=== PATIENT | female | born 1970 | race Caucasian/White ===

== ENCOUNTER 2017-04-25 11:51 | Emergency (ER) | payer MEDICAID ==
[~2017-04-25] VITALS: Ht 160 cm; Wt 80.0 kg
[~2017-04-25 11:51] MED LIST: ACET500C5 PO; DOCU-160 PO; LORA1TAB PO; TRAM-40 PO
[2017-04-25 11:55] VITALS: Ht 160 cm; Wt 80.0 kg
--- NOTE | 2017-04-25 12:38 | ERA ---
ER Documentation Chief Complaint Date/Time DATE: 04/25/17 TIME: 12:36 Chief Complaint RIGHT ARM PAIN HPI 46-year-old female with a chief complaint of right elbow pain. Pain started 1 day ago. Patient was carrying a box of bottles when she felt sudden pain in her right elbow. Denies trauma, fever, numbness, tingling, or other rapidly progressive neurological deficits, previous symptoms, or taking medications to relieve current symptoms. Patient has no other complaints and describes no other associated manifestations. ROS All systems reviewed and are negative except as per history of present illness. Medications Home Meds Active Scripts Ibuprofen* (Motrin*) 400 Mg Tab, 400 MG PO Q6, #30 TAB Prov:MOHIT DALAL PA-C 04/25/17 Lorazepam* (Lorazepam*) 1 Mg Tablet, 1 MG PO Q8H Y for ANXIETY, #20 TAB Prov:JODY HUNT 07/13/16 Lorazepam* (Lorazepam*) 1 Mg Tablet, 1 MG PO Q8H Y for ANXIETY, #10 TAB Prov:JODY HUNT 04/23/16 Tramadol Hcl* (Ultram*) 50 Mg Tablet, 50 MG PO Q6H Y for PAIN, #14 TAB Prov:DAYA WYATT PA-C 10/30/15 Reported Medications Docusate Sodium (Dulcolax Stool Softener) 100 Mg Capsule, 100 MG PO BID, CAP 04/23/16 Acetaminophen* (Tylophen*) 500 Mg Capsule, 500 MG PO Q6H Y for PAIN, TAB 04/23/16 Allergies Allergies: Coded Allergies: sulfamethoxazole (Verified Allergy, Unknown, swelling, 10/30/15) trimethoprim (Verified Allergy, Unknown, swelling, 10/30/15) PMhx/Soc History of Surgery: Yes (appendectomy) Anesthesia Reaction: No Hx Neurological Disorder: No Hx Respiratory Disorders: No Hx Cardiac Disorders: No Hx Psychiatric Problems: No Hx Miscellaneous Medical Probl: Yes (hemorrhoids) Hx Alcohol Use: No Hx Substance Use: No Hx Tobacco Use: No Smoking Status: Never smoker Physical Exam Vitals Vital Signs Date Time Temp Pulse Resp B/P Pulse Ox O2 Delivery O2 Flow Rate FiO2 04/25/17 11:55 98.6 99 18 139/89 99 Physical Exam Const: [] Head: Atraumatic Eyes: Normal Conjunctiva ENT: Normal External Ears, Nose and Mouth. Neck: Full range of motion..~ No meningismus. Resp: Clear to auscultation bilaterally Cardio: Regular rate and rhythm, no murmurs. Cap refill less than 2 seconds. Radial pulses 2+ bilaterally. Abd: Soft, non tender, non distended. Normal bowel sounds Skin: No petechiae or rashes Back: No midline or flank tenderness Ext: Decreased active and passive range of motion of the right elbow secondary to pain. Passive no contracture, obvious deformity, or changes in skin. Left elbow unremarkable. No specific physical exam findings noted. Neur: Awake and alert Psych: Normal Mood and Affect Results 24 hrs Current Medications Medications (Trade) Dose Ordered Sig/Guillermina Route PRN Reason Start Time Stop Time Status Last Admin Dose Admin Ibuprofen (Motrin) 400 mg ONCE ONCE PO 04/25/17 13:00 04/25/17 13:01 DC 04/25/17 12:41 Procedures/MDM 46-year-old female presented with a chief complaint of right elbow pain as described in the history and physical examination. Patient denies history of trauma. X-ray was obtained, read by the radiologist, given the following impression: 1. Fluid in the elbow joint. This may indicate a nondisplaced fracture. Correlation with MRI should be considered. 2. Otherwise unremarkable images of the right elbow. Patient will be discharged with sling. At this time of little suspicion for displaced fracture, supracondylar fracture, or other neurovascular compromise. Most likely diagnosis is elbow effusion due to unknown etiology. I have spoke with the patient regarding their condition and future management including the necessity to follow-up with orthopedics for MRI. They have verbally responded that they understand their status and treatment plan. The patients vitals are stable, and their current condition is appropriate for discharge. The patient will be given discharge instructions with return precautions. Departure Diagnosis: Primary Impression: Pain of right arm Condition: Stable Additional Instructions: Follow up with your PCP within the next 1-3 days for a more thorough evaluation and a possible referral to a specialist. Return the the emergency department immediately if symptoms worsen or change. If you have any questions regarding medications, ask your pharmacist or us before you leave. If any adverse reactions occur while taking your medications, discontinue the treatment and return to the emergency department immediately. Take your medications as directed, and complete the entire course of treatment. MOHIT DALAL PA-C Apr 25, 2017 12:38
[2017-04-25] MEDS ORDERED: IBUPROFEN 200 MG TAB PO ONE (13:00)
--- NOTE | 2017-04-25 13:55 | RADRPT ---
PROCEDURE: XR right elbow. CLINICAL INDICATION: Trauma. Right elbow pain. TECHNIQUE: Three views. Frontal, lateral, and oblique. COMPARISON: No prior study is available for comparison. FINDINGS: There is no fracture or dislocation. There is fluid in the elbow joint. Articular surfaces are intact. There is no lytic or blastic lesion. There is no radiopaque foreign body. IMPRESSION: 1. Fluid in the elbow joint. This may indicate a nondisplaced fracture. Correlation with MRI shou ld be considered. 2. Otherwise unremarkable images of the right elbow. RPTAT: QQ .Michi Ndiaye MD, Date Time Electronically viewed and signed by .Michi Ndiaye MD, on 04/25/2017 13:55 .R/
[2017-04-25] MEDS ORDERED: IBUP400T22 PO (14:22)
== END 2017-04-25 14:40 | disposition home or self-care (01) ==
LOC: FTE 11:51
DX: M79.601 Pain in right arm (principal)
CPT/HCPCS: 73080; Z7502; Z7610

== ENCOUNTER 2017-11-27 08:18 | Emergency (ER) | END 2017-11-27 11:15 | disposition home or self-care (01) ==